=== PATIENT | female | born 1975 | race American Indian/Alaskan Native ===

== ENCOUNTER 2016-12-15 07:15 | Emergency (ER) | payer MEDICAID ==
[2016-12-15 07:29] VITALS: BP 118/78
[2016-12-15] MEDS ORDERED: ROCEPHIN IM ONE (08:45)
[2016-12-15] MEDS ORDERED: MOTRIN PO ONE (08:45)
[2016-12-15] MEDS ORDERED: XYLOCAINE 1% MPF 5 mL INFILTRATI ONE (08:45)
--- NOTE | 2016-12-15 08:57 | Emergency Department Report ---
ED ENT HPI - General Chief complaint: Earache Stated complaint: LFT EAR PAIN Time Seen by Provider: 12/15/16 08:45 Source: patient Mode of arrival: Ambulatory Limitations: No Limitations - History of Present Illness Initial comments: Patient is a 41-year-old female with a history of recurrent ear infection and ear disease who presents to the ED complaining of left ear pain 1 day. Patient states the pain started around 9 AM she started to experience some moderately, constant pain in her left ear. Patient states she recently got over cold past week. Patient states she has ENT doctor on [facility] ,she normally sees could not make it in today. Patient denies loss of the hearing. Patient denies fevers/chills/nausea/vomiting/abdominal pains chest pain/ shortness of breath or any other problems. - Related Data Previous Rx's Medication Instructions Recorded Last Taken Type ALBUTEROL Inhaler [ProAir HFA 1 puff IH Q4-6H #1 inha 08/19/13 Unknown Rx Inhaler] Ibuprofen [Motrin 600 MG tab] 600 mg PO Q8H PRN #21 tablet 09/30/16 Unknown Rx methylPREDNISolone [Medrol Dose 4 mg PO DAILY #1 pack 09/30/16 Unknown Rx Keyshawn] traMADol [Ultram 50 MG tab] 50 mg PO Q4HR PRN #10 tablet 09/30/16 Unknown Rx Amoxicillin/K Clav Tab [Augmentin 1 tab PO Q12HR #14 tab 12/15/16 Unknown Rx 875 mg] Ibuprofen [Motrin 800 MG tab] 800 mg PO Q8H #40 tablet 12/15/16 Unknown Rx Allergies Allergy/AdvReac Type Severity Reaction Status Date / Time No Known Allergies Allergy Verified 03/19/16 14:00 ED Dental HPI - General Chief complaint: Earache Stated complaint: LFT EAR PAIN Time Seen by Provider: 12/15/16 08:45 Source: patient Mode of arrival: Ambulatory Limitations: No Limitations - Related Data Previous Rx's Medication Instructions Recorded Last Taken Type ALBUTEROL Inhaler [ProAir HFA 1 puff IH Q4-6H #1 inha 08/19/13 Unknown Rx Inhaler] Ibuprofen [Motrin 600 MG tab] 600 mg PO Q8H PRN #21 tablet 09/30/16 Unknown Rx methylPREDNISolone [Medrol Dose 4 mg PO DAILY #1 pack 09/30/16 Unknown Rx Keyshawn] traMADol [Ultram 50 MG tab] 50 mg PO Q4HR PRN #10 tablet 09/30/16 Unknown Rx Amoxicillin/K Clav Tab [Augmentin 1 tab PO Q12HR #14 tab 12/15/16 Unknown Rx 875 mg] Ibuprofen [Motrin 800 MG tab] 800 mg PO Q8H #40 tablet 12/15/16 Unknown Rx Allergies Allergy/AdvReac Type Severity Reaction Status Date / Time No Known Allergies Allergy Verified 03/19/16 14:00 ED Review of Systems ROS: Stated complaint: LFT EAR PAIN Other details as noted in HPI Constitutional: denies: chills, fever Eyes: denies: eye pain, eye discharge, vision change ENT: ear pain. denies: throat pain, dental pain, hearing loss, congestion Respiratory: denies: cough, shortness of breath, SOB with exertion, SOB at rest , wheezing Cardiovascular: denies: chest pain, palpitations Endocrine: no symptoms reported Gastrointestinal: denies: abdominal pain, nausea, vomiting, diarrhea, constipation, hematemesis, hematochezia Genitourinary: denies: urgency, dysuria, frequency, hematuria, discharge Musculoskeletal: denies: back pain, joint swelling, arthralgia Skin: denies: rash, lesions, change in color, pruritus Neurological: denies: headache, weakness, numbness, paresthesias, confusion, abnormal gait Psychiatric: denies: anxiety, depression Hematological/Lymphatic: denies: easy bleeding, easy bruising ED Past Medical Hx - Past Medical History Previous Medical History?: Yes Hx Hypertension: Yes Hx Psychiatric Treatment: Yes (depression) Hx Asthma: Yes - Surgical History Additional Surgical History: C section x2 - Social History Smoking Status: Never Smoker Substance Use Type: None - Medications Home Medications: Home Medications Medication Instructions Recorded Confirmed Last Taken Type ALBUTEROL Inhaler [ProAir HFA 1 puff IH Q4-6H #1 inha 08/19/13 09/30/16 Unknown Rx Inhaler] Ibuprofen [Motrin 600 MG tab] 600 mg PO Q8H PRN #21 tablet 09/30/16 Unknown Rx methylPREDNISolone [Medrol Dose 4 mg PO DAILY #1 pack 09/30/16 Unknown Rx Keyshawn] traMADol [Ultram 50 MG tab] 50 mg PO Q4HR PRN #10 tablet 09/30/16 Unknown Rx Amoxicillin/K Clav Tab [Augmentin 1 tab PO Q12HR #14 tab 12/15/16 Unknown Rx 875 mg] Ibuprofen [Motrin 800 MG tab] 800 mg PO Q8H #40 tablet 12/15/16 Unknown Rx ED Physical Exam - General Limitations: No Limitations General appearance: alert, in no apparent distress - Head Head exam: Present: atraumatic, normocephalic - Eye Eye exam: Present: normal appearance, PERRL, EOMI. Absent: scleral icterus, conjunctival injection, periorbital swelling, periorbital tenderness Pupils: Present: normal accommodation - ENT ENT exam: Present: mucous membranes moist, normal external ear exam, other. Absent: TM's normal bilaterally - Expanded ENT Exam Expanded Ear exam: Present: other (no mastoid tenderness bilaterally, tragus tenderness of left ear) TM/Canal exam: Erythema: Left TM, Bulging: Left TM, Effusion: Right TM, Left TM Mouth exam: Present: normal external inspection. Absent: drooling, trismus, muffled voice, tongue normal, tongue elevation Teeth exam: Present: normal inspection. Absent: fractured tooth #, dental tenderness # Throat exam: Positive: normal inspection. Negative: tonsillar erythema, tonsillomegaly, tonsillar exudate, R peritonsillar mass, L peritonsillar mass - Neck Neck exam: Present: normal inspection, full ROM. Absent: tenderness, meningismus, lymphadenopathy, thyromegaly - Respiratory Respiratory exam: Present: normal lung sounds bilaterally. Absent: respiratory distress, wheezes, rales, rhonchi, accessory muscle use - Cardiovascular Cardiovascular Exam: Present: regular rate, normal rhythm. Absent: systolic murmur, diastolic murmur, rubs, gallop - GI/Abdominal GI/Abdominal exam: Present: soft, normal bowel sounds. Absent: distended, tenderness, guarding, rebound, organomegaly, mass, bruit - Extremities Exam Extremities exam: Present: normal inspection, full ROM, normal capillary refill. Absent: tenderness - Back Exam Back exam: Present: normal inspection, full ROM. Absent: CVA tenderness (R), CVA tenderness (L) - Neurological Exam Neurological exam: Present: alert, oriented X3, CN II-XII intact, normal gait - Psychiatric Psychiatric exam: Present: normal affect, normal mood - Skin Skin exam: Present: warm, dry, intact, normal color. Absent: rash ED Course Vital Signs 12/15/16 07:27 Temperature 97.8 F Pulse Rate 78 Respiratory 20 Rate Blood Pressure 118/78 O2 Sat by Pulse 100 Oximetry ED Medical Decision Making - Medical Decision Making 41-year-old female presents with left otitis media ED course: Patient received 250 mg of Rocephin IM, 800 mg Motrin. Discussed with patient to follow up with her ENT doctor. Discussed ENT referral was given as well. Discussed home medication with Augmentin twice a day for 7 days. Patient states she will make an appointment with her ENT Dr. Vital signs stable. Patient is in no acute or respiratory distress. Critical care attestation.: If time is entered above; I have spent that time in minutes in the direct care of this critically ill patient, excluding procedure time. ED Disposition Clinical Impression: Left otitis media Qualifiers: Otitis media type: suppurative Chronicity: acute Recurrence: recurrent Spontaneous tympanic membrane rupture: without spontaneous rupture Qualified Code(s): H66.005 - Acute suppurative otitis media without spontaneous rupture of ear drum, recurrent, left ear Disposition: DISCHARGED TO HOME OR SELFCARE Is pt being admited?: No Does the pt Need Aspirin: No Condition: Stable Instructions: Otitis Media (ED) Prescriptions: Amoxicillin/K Clav Tab [Augmentin 875 mg] 1 tab PO Q12HR #14 tab Ibuprofen [Motrin 800 MG tab] 800 mg PO Q8H #40 tablet Referrals: PRIMARY MD YUSUF [Primary Care Provider] - 3-5 Days LINDSAY MILLER MD [Staff Physician] - 3-5 Days RADHA KRISHNAN MD [Staff Physician] - 3-5 Days JOHN COOK MD [Staff Physician] - 3-5 Days VAHE CANTOR MD [Staff Physician] - 3-5 Days TOBIN FERNÁNDEZ MD [Staff Physician] - 3-5 Days Forms: Work/School Release Form(ED) Time of Disposition: 09:40
== END 2016-12-15 09:53 | disposition home or self-care (01) ==
LOC: ED 07:15
DX: H66.005 Acute suppurative otitis media without spontaneous rupture of ear drum, recurrent, left ear (principal); I10 Essential (primary) hypertension; J45.909 Unspecified asthma, uncomplicated; F32.9 Major depressive disorder, single episode, unspecified
CPT/HCPCS: 96372; 99282; J0696

== ENCOUNTER 2016-12-17 13:43 | Emergency (ER) | payer MEDICAID ==
--- NOTE | 2016-12-17 18:03 | Emergency Department Report ---
ED ENT HPI - General Chief complaint: Earache Stated complaint: BLOOD DRAINAGE FROM EAR Time Seen by Provider: 12/17/16 17:57 Source: patient Mode of arrival: Ambulatory Limitations: No Limitations - History of Present Illness Initial comments: Patient presents with left ear pain 4 days now. She was here 2 days ago and was given antibiotic Augmentin. She states that she has only taken 3 doses and she forgot her dose this morning. She admits that the ibuprofen 800 mg is helping with the pain. The reason for her coming back is she noted blood on her pillow when she got home and lay down. Denies change in any other symptoms. She denies nausea, vomiting, chills, fever, abdominal pain, headache , dizziness, blurred vision. Does admit to having a history of left ear infections since she was a child. She admits to having a appointment with ENT on 12/22/16 complaint: ear pain -: days(s) (4) Location: L ear Severity: severe Severity scale (0 -10): 8 Quality: aching, dull Consistency: constant Improves with: NSAID Worsens with: none - Related Data Previous Rx's Medication Instructions Recorded Last Taken Type ALBUTEROL Inhaler [ProAir HFA 1 puff IH Q4-6H #1 inha 08/19/13 Unknown Rx Inhaler] Ibuprofen [Motrin 600 MG tab] 600 mg PO Q8H PRN #21 tablet 09/30/16 Unknown Rx methylPREDNISolone [Medrol Dose 4 mg PO DAILY #1 pack 09/30/16 Unknown Rx Keyshawn] traMADol [Ultram 50 MG tab] 50 mg PO Q4HR PRN #10 tablet 09/30/16 Unknown Rx Amoxicillin/K Clav Tab [Augmentin 1 tab PO Q12HR #14 tab 12/15/16 Unknown Rx 875 mg] Ibuprofen [Motrin 800 MG tab] 800 mg PO Q8H #40 tablet 12/15/16 Unknown Rx Allergies Allergy/AdvReac Type Severity Reaction Status Date / Time Penicillins Allergy Hives Verified 12/17/16 14:30 ED Dental HPI - General Chief complaint: Earache Stated complaint: BLOOD DRAINAGE FROM EAR Time Seen by Provider: 12/17/16 17:57 Source: patient Mode of arrival: Ambulatory Limitations: No Limitations - Related Data Previous Rx's Medication Instructions Recorded Last Taken Type ALBUTEROL Inhaler [ProAir HFA 1 puff IH Q4-6H #1 inha 08/19/13 Unknown Rx Inhaler] Ibuprofen [Motrin 600 MG tab] 600 mg PO Q8H PRN #21 tablet 09/30/16 Unknown Rx methylPREDNISolone [Medrol Dose 4 mg PO DAILY #1 pack 09/30/16 Unknown Rx Keyshawn] traMADol [Ultram 50 MG tab] 50 mg PO Q4HR PRN #10 tablet 09/30/16 Unknown Rx Amoxicillin/K Clav Tab [Augmentin 1 tab PO Q12HR #14 tab 12/15/16 Unknown Rx 875 mg] Ibuprofen [Motrin 800 MG tab] 800 mg PO Q8H #40 tablet 12/15/16 Unknown Rx Allergies Allergy/AdvReac Type Severity Reaction Status Date / Time Penicillins Allergy Hives Verified 12/17/16 14:30 ED Review of Systems ROS: Stated complaint: BLOOD DRAINAGE FROM EAR Other details as noted in HPI Constitutional: denies: chills, fever Eyes: denies: eye pain, eye discharge, vision change ENT: as per HPI, ear pain (left), hearing loss (that is chronic) Respiratory: denies: cough, shortness of breath, wheezing Cardiovascular: denies: chest pain, palpitations Gastrointestinal: denies: abdominal pain, nausea, diarrhea Genitourinary: denies: urgency, dysuria, discharge Musculoskeletal: denies: back pain, joint swelling, arthralgia Skin: denies: rash, lesions Neurological: denies: headache, weakness, paresthesias ED Past Medical Hx - Past Medical History Previous Medical History?: Yes Hx Hypertension: Yes Hx Psychiatric Treatment: Yes (depression) Hx Asthma: Yes Additional medical history: Earache - Surgical History Past Surgical History?: Yes Additional Surgical History: C section x2 - Social History Smoking Status: Smoker, Current Status Unknown Substance Use Type: Prescribed - Medications Home Medications: Home Medications Medication Instructions Recorded Confirmed Last Taken Type ALBUTEROL Inhaler [ProAir HFA 1 puff IH Q4-6H #1 inha 08/19/13 09/30/16 Unknown Rx Inhaler] Ibuprofen [Motrin 600 MG tab] 600 mg PO Q8H PRN #21 tablet 09/30/16 Unknown Rx methylPREDNISolone [Medrol Dose 4 mg PO DAILY #1 pack 09/30/16 Unknown Rx Keyshawn] traMADol [Ultram 50 MG tab] 50 mg PO Q4HR PRN #10 tablet 09/30/16 Unknown Rx Amoxicillin/K Clav Tab [Augmentin 1 tab PO Q12HR #14 tab 12/15/16 Unknown Rx 875 mg] Ibuprofen [Motrin 800 MG tab] 800 mg PO Q8H #40 tablet 12/15/16 Unknown Rx ED Physical Exam - General Limitations: No Limitations General appearance: alert, in no apparent distress - Head Head exam: Present: atraumatic, normocephalic - Eye Eye exam: Present: normal appearance - ENT ENT exam: Present: mucous membranes moist - Expanded ENT Exam Expanded TM/Canal exam: Erythema: Left TM, Effusion: Left TM, Perforation: Left TM, Loss of Landmarks: Left TM (scarring) Mouth exam: Present: normal external inspection Teeth exam: Present: normal inspection Throat exam: Positive: normal inspection - Neck Neck exam: Present: normal inspection, full ROM. Absent: lymphadenopathy - Respiratory Respiratory exam: Present: normal lung sounds bilaterally. Absent: respiratory distress - Cardiovascular Cardiovascular Exam: Present: regular rate, normal rhythm. Absent: systolic murmur, diastolic murmur, rubs, gallop - GI/Abdominal GI/Abdominal exam: Present: soft, normal bowel sounds. Absent: tenderness - Neurological Exam Neurological exam: Present: alert, oriented X3 - Psychiatric Psychiatric exam: Present: normal affect, normal mood - Skin Skin exam: Present: warm, dry, intact, normal color. Absent: rash ED Course Vital Signs 12/17/16 14:26 Temperature 98.3 F Pulse Rate 52 L Respiratory 16 Rate Blood Pressure 123/64 O2 Sat by Pulse 100 Oximetry ED Medical Decision Making - Medical Decision Making Patient presents with ear perforation and otitis media. She is already on Augmentin and ibuprofen from 2 days ago. I will not change her medications. She has an appointment on 12/22/69 with a ENT doctor. I will reassure her that her symptoms are not emergent and advised her to keep her appointment with the ENT doctor. I'll also advise her not to miss any of her medication. - Differential Diagnosis otitis media, ear perforation, otitis externa Critical Care Time: No Critical care attestation.: If time is entered above; I have spent that time in minutes in the direct care of this critically ill patient, excluding procedure time. ED Disposition Clinical Impression: Left otitis media, Perforation of left tympanic membrane Disposition: DISCHARGED TO HOME OR SELFCARE Is pt being admited?: No Does the pt Need Aspirin: No Condition: Stable Instructions: Otitis Media (ED), Ruptured Eardrum (ED) Additional Instructions: Please do not miss your appointment with the ENT doctor. Please take your medication as prescribed. Your antibiotic should be taken twice a day, 12 hours apart every day. Referrals: PRIMARY CARE, [Primary Care Provider] - 3-5 Days Forms: Work/School Release Form(ED) Time of Disposition: 18:07
[2016-12-17 18:16] VITALS: BP 126/60
== END 2016-12-17 18:14 | disposition home or self-care (01) ==
LOC: ED 13:43
DX: H66.92 Otitis media, unspecified, left ear (principal); H72.92 Unspecified perforation of tympanic membrane, left ear; I10 Essential (primary) hypertension; J45.909 Unspecified asthma, uncomplicated; F17.200 Nicotine dependence, unspecified, uncomplicated; Z88.0 Allergy status to penicillin
CPT/HCPCS: 99282

== ENCOUNTER 2017-02-07 13:51 | Emergency (ER) | payer MEDICAID ==
[2017-02-07] MEDS ORDERED: MOTRIN PO ONE (16:28)
--- NOTE | 2017-02-07 16:28 | Emergency Department Report ---
HPI - General Chief Complaint: Dental/Oral Time Seen by Provider: 02/07/17 16:27 - HPI HPI: Patient here complaining of tooth ache to left lower back tooth that is radiating up into her left ear for about a month. She says she called dentist but cannot get in with dentist right away. She reports pain is 10 out of 10. Denies any fever or chills. Denies any sore throat. Denies any nausea or vomiting. Denies any facial swelling. ED Past Medical Hx - Past Medical History Previous Medical History?: Yes Hx Hypertension: Yes Hx Psychiatric Treatment: Yes (depression) Hx Asthma: Yes Additional medical history: Earache - Surgical History Past Surgical History?: Yes Additional Surgical History: C section x2 - Family History Family history: no significant - Social History Smoking Status: Never Smoker Substance Use Type: Non Opiate Pain, Prescribed - Medications Home Medications: Home Medications Medication Instructions Recorded Confirmed Last Taken Type ALBUTEROL Inhaler [ProAir HFA 1 puff IH Q4-6H #1 inha 08/19/13 09/30/16 Unknown Rx Inhaler] methylPREDNISolone [Medrol Dose 4 mg PO DAILY #1 pack 09/30/16 Unknown Rx Keyshawn] traMADol [Ultram 50 MG tab] 50 mg PO Q4HR PRN #10 tablet 09/30/16 Unknown Rx Amoxicillin/K Clav Tab [Augmentin 1 tab PO Q12HR #14 tab 12/15/16 Unknown Rx 875 mg] Ibuprofen [Motrin 800 MG tab] 800 mg PO Q8H #40 tablet 12/15/16 Unknown Rx Acetaminophen/Codeine [Tylenol 1 tab PO Q6H PRN #20 tab 02/07/17 Unknown Rx /Codeine # 3 tab] Clindamycin [Clindamycin CAP] 300 mg PO Q8H #30 cap 02/07/17 Unknown Rx Ibuprofen [Motrin 600 MG tab] 600 mg PO Q8H PRN #21 tablet 02/07/17 Unknown Rx ED Review of Systems ROS: Stated complaint: TOOTHACHE/PAIN LEFT EAR/FACE Other details as noted in HPI Comment: All other systems reviewed and negative Constitutional: denies: chills, fever ENT: ear pain, dental pain. denies: throat pain, congestion Respiratory: no symptoms reported Cardiovascular: denies: chest pain, palpitations, edema, syncope Gastrointestinal: denies: nausea, vomiting Skin: denies: rash Neurological: denies: headache Physical Exam - Physical Exam Vital Signs: Vital Signs 02/07/17 13:57 Temperature 98.5 F Pulse Rate 62 Respiratory 18 Rate Blood Pressure 135/72 O2 Sat by Pulse 100 Oximetry General: This is a 41-year-old female well-nourished well-developed in no acute distress. Physical Exam: Head: Normocephalic atraumatic Mouth: Moist, no pharyngeal exudate or erythema. Uvula is midline and oral airway is patent. No gingival enlargement or dental tenderness. No facial swelling. No peritonsillar abscesses. Patient with multiple areas of dental caries. Tender to palpate around #18. No cellulitis noted. #18 with partial fracture without any palpable exposure. Neck: Supple, no C-spine tenderness, no tracheal deviation. Nontender to palpate. no adenopathy Ears: Pearly-penaloza to both TM..bilateral EAC without any redness swelling or drainage Eyes: Bilateral pupils equal and reactive to light, bilateral EOM intact. Bilateral sclera and conjunctiva without injection. Normal accommodation Nose: Mucosa moist, normal mucosa. maxillary and frontal sinus non-tender to palpate. Lungs: Clear to auscultate bilaterally no rhonchi wheezes or rales. Normal work of breathing extremity; No CCE. +2 pulses. No neurovascular compromise Cardiovascular: S1-S2, regular rate rhythm. No murmurs. Skin: clean Dry and intact no rash no lesions Psych: Normal mood and behavior ED Course Vital Signs 02/07/17 13:57 Temperature 98.5 F Pulse Rate 62 Respiratory 18 Rate Blood Pressure 135/72 O2 Sat by Pulse 100 Oximetry - Reevaluation(s) Reevaluation #1: 02/07/17 18:27 Patient given Motrin 800 mg in emergency room for toothache. ED Medical Decision Making - Medical Decision Making ED Course: Patient with toothache, dental caries and dental fracture. I discussed the patient that she will need to follow-up with a dentist and she says she already has an appointment but it's Weak and she can't wait. She was given Motrin 800 mg in emergency room to manage pain which decreased her pain. Patient discharged home with prescription for Motrin, Tylenol No. 3 and clindamycin. Critical care attestation.: If time is entered above; I have spent that time in minutes in the direct care of this critically ill patient, excluding procedure time. ED Disposition Clinical Impression: Toothache, Dental caries Fracture, tooth Qualifiers: Encounter type: initial encounter Fracture type: closed Qualified Code(s): S02.5XXA - Fracture of tooth (traumatic), initial encounter for closed fracture Disposition: DISCHARGED TO HOME OR SELFCARE Is pt being admited?: No Does the pt Need Aspirin: No Condition: Stable Instructions: Dental Caries (ED), Toothache (ED) Additional Instructions: Follow-up will [facility] dental clinic call and Thursday to schedule an appointment. Please do not take Tylenol [address] as this will cause drowsiness. Take oral antibiotic as prescribed Prescriptions: Acetaminophen/Codeine [Tylenol /Codeine # 3 tab] 1 tab PO Q6H PRN #20 tab PRN Reason: Toothache Clindamycin [Clindamycin CAP] 300 mg PO Q8H #30 cap Ibuprofen [Motrin 600 MG tab] 600 mg PO Q8H PRN #21 tablet PRN Reason: Pain Referrals: [facility] [Outside] - 2-3 Days Forms: Accompanied Note, Work/School Release Form(ED)
[2017-02-07 18:43] VITALS: BP 141/82
== END 2017-02-07 18:43 | disposition home or self-care (01) ==
LOC: ED 13:51
DX: S02.5XXA Fracture of tooth (traumatic), initial encounter for closed fracture (principal); K02.9 Dental caries, unspecified; F32.9 Major depressive disorder, single episode, unspecified; J45.909 Unspecified asthma, uncomplicated; I10 Essential (primary) hypertension; Z88.0 Allergy status to penicillin; X58.XXXA Exposure to other specified factors, initial encounter; Y93.89 Activity, other specified; Y92.89 Other specified places as the place of occurrence of the external cause; Y99.8 Other external cause status
CPT/HCPCS: 99282

== ENCOUNTER 2017-05-31 15:35 | Emergency (ER) | payer MEDICAID ==
[2017-05-31 16:14] VITALS: BP 131/79
[2017-05-31] MEDS ORDERED: MOTRIN PO ONE (16:58)
--- NOTE | 2017-05-31 16:59 | Emergency Department Report ---
ED Lower Extremity HPI - General Chief Complaint: Extremity Injury, Lower Stated Complaint: RT ANKLE INJURY Time Seen by Provider: 05/31/17 16:57 Source: patient Mode of arrival: Ambulatory Limitations: No Limitations - History of Present Illness Initial Comments: Patient reports she slipped and fell over a rug and injured her right ankle while at work two days ago Complaint: ankle injury (right), foot injury (right) Onset/Timin -: days(s) Injury: Ankle: Right, Foot: Right Type of Injury: unknown Place: work Severity: severe Severity scale (0 -10): 9 Improves With: immobilization Worsens With: weight bearing Context: fall Other Symptoms: other (none) Associated Symptoms: swelling, able to partially bear weight. denies: snap/pop sensation, numbness, tingling, unable to bear weight, ambulatory Treatments Prior to Arrival: cold therapy - Related Data Previous Rx's Medication Instructions Recorded Last Taken Type ALBUTEROL Inhaler [ProAir HFA 1 puff IH Q4-6H #1 inha 08/19/13 Unknown Rx Inhaler] methylPREDNISolone [Medrol Dose 4 mg PO DAILY #1 pack 09/30/16 Unknown Rx Keyshawn] traMADol [Ultram 50 MG tab] 50 mg PO Q4HR PRN #10 tablet 09/30/16 Unknown Rx Amoxicillin/K Clav Tab [Augmentin 1 tab PO Q12HR #14 tab 12/15/16 Unknown Rx 875 mg] Ibuprofen [Motrin 800 MG tab] 800 mg PO Q8H #40 tablet 12/15/16 Unknown Rx Acetaminophen/Codeine [Tylenol 1 tab PO Q6H PRN #20 tab 02/07/17 Unknown Rx /Codeine # 3 tab] Clindamycin [Clindamycin CAP] 300 mg PO Q8H #30 cap 02/07/17 Unknown Rx Ibuprofen [Motrin 600 MG tab] 600 mg PO Q8H PRN #21 tablet 02/07/17 Unknown Rx Ibuprofen [Motrin 800 MG tab] 800 mg PO Q8HR PRN #30 tablet 05/31/17 Unknown Rx Allergies Allergy/AdvReac Type Severity Reaction Status Date / Time Penicillins Allergy Hives Verified 12/17/16 14:30 ED Review of Systems ROS: Stated complaint: RT ANKLE INJURY Other details as noted in HPI Constitutional: denies: chills, diaphoresis, fever, malaise Eyes: denies: eye pain ENT: denies: ear pain, throat pain Respiratory: denies: cough, orthopnea, shortness of breath, SOB with exertion, SOB at rest Cardiovascular: denies: chest pain, palpitations, dyspnea on exertion, orthopnea Gastrointestinal: denies: abdominal pain, nausea, vomiting, diarrhea, constipation Musculoskeletal: arthralgia (right ankle and foot). denies: back pain, joint swelling, myalgia Skin: denies: rash, lesions Neurological: denies: headache, weakness, numbness, paresthesias, confusion Psychiatric: denies: anxiety, depression Hematological/Lymphatic: denies: easy bleeding, easy bruising, swollen glands ED Past Medical Hx - Past Medical History Hx Hypertension: Yes Hx Psychiatric Treatment: Yes (depression) Hx Asthma: Yes Additional medical history: Earache - Surgical History Additional Surgical History: C section x2 - Social History Smoking Status: Never Smoker Substance Use Type: None - Medications Home Medications: Home Medications Medication Instructions Recorded Confirmed Last Taken Type ALBUTEROL Inhaler [ProAir HFA 1 puff IH Q4-6H #1 inha 08/19/13 09/30/16 Unknown Rx Inhaler] methylPREDNISolone [Medrol Dose 4 mg PO DAILY #1 pack 09/30/16 Unknown Rx Keyshawn] traMADol [Ultram 50 MG tab] 50 mg PO Q4HR PRN #10 tablet 09/30/16 Unknown Rx Amoxicillin/K Clav Tab [Augmentin 1 tab PO Q12HR #14 tab 12/15/16 Unknown Rx 875 mg] Ibuprofen [Motrin 800 MG tab] 800 mg PO Q8H #40 tablet 12/15/16 Unknown Rx Acetaminophen/Codeine [Tylenol 1 tab PO Q6H PRN #20 tab 02/07/17 Unknown Rx /Codeine # 3 tab] Clindamycin [Clindamycin CAP] 300 mg PO Q8H #30 cap 02/07/17 Unknown Rx Ibuprofen [Motrin 600 MG tab] 600 mg PO Q8H PRN #21 tablet 02/07/17 Unknown Rx Ibuprofen [Motrin 800 MG tab] 800 mg PO Q8HR PRN #30 tablet 05/31/17 Unknown Rx ED Physical Exam - General Limitations: No Limitations General appearance: alert, in no apparent distress - Head Head exam: Present: atraumatic, normocephalic, normal inspection - Eye Eye exam: Present: normal appearance, PERRL, EOMI Pupils: Present: normal accommodation - ENT ENT exam: Present: normal exam, normal orophraynx, mucous membranes moist. Absent: mucous membranes dry - Neck Neck exam: Present: normal inspection, full ROM. Absent: tenderness, meningismus, lymphadenopathy, thyromegaly - Respiratory Respiratory exam: Present: normal lung sounds bilaterally. Absent: respiratory distress, wheezes, rales, rhonchi, stridor - Cardiovascular Cardiovascular Exam: Present: regular rate, normal rhythm, normal heart sounds. Absent: bradycardia, tachycardia, irregular rhythm, systolic murmur, diastolic murmur, rubs, gallop - Extremities Exam Extremities exam: Present: normal inspection, full ROM, normal capillary refill. Absent: tenderness, pedal edema, joint swelling, calf tenderness - Expanded Lower Extremity Exam Right Hip exam: Present: pelvic stability Upper Leg exam: Present: normal inspection, full ROM Knee exam: Present: normal inspection, full ROM Lower Leg exam: Present: normal inspection, full ROM. Absent: Daisy's sign Ankle exam: Present: tenderness (medial and lateral), swelling. Absent: abrasion, laceration, ecchymosis, deformity, crepidus, dislocation, erythema, anterior draw sign Foot/Toe exam: Present: normal inspection, full ROM, tenderness (dorsum), swelling. Absent: abrasion, laceration, ecchymosis, deformity, crepidus, dislocation, erythema, amputation, puncture wound, foreign body, calcaneal tenderness, tenderness at base of 5th metatarsal, nail avulsion, subungual hematoma Neuro vascular tendon exam: Present: no vascular compromise. Absent: pulse deficit, abnormal cap refill, motor deficit, sensory deficit, tendon deficit, extremity cold to touch, pallor, abnormal 2-point discrimination, decreased fine /light touch, foot drop, peroneal nerve deficit, significant pain with passive ROM of distal joint Gait: Positive: observed and limited by pain - Back Exam Back exam: Present: normal inspection, full ROM. Absent: CVA tenderness (R), CVA tenderness (L) - Neurological Exam Neurological exam: Present: alert, oriented X3, CN II-XII intact, normal gait, reflexes normal. Absent: motor sensory deficit - Psychiatric Psychiatric exam: Present: normal affect, normal mood. Absent: depressed, agitated - Skin Skin exam: Present: warm, dry, intact, normal color. Absent: rash ED Course Vital Signs 05/31/17 16:11 Temperature 99.1 F Pulse Rate 73 Respiratory 18 Rate Blood Pressure 131/79 O2 Sat by Pulse 100 Oximetry - Reevaluation(s) Reevaluation #1: 05/31/17 17:35 NSAID, laboratory and radiology studies ordered ED Lower Extremity MDM - Lab Data Vital Signs 05/31/17 16:11 Temperature 99.1 F Pulse Rate 73 Respiratory 18 Rate Blood Pressure 131/79 O2 Sat by Pulse 100 Oximetry - Medical Decision Making During the course of ED, NSAID and radiology study were ordered. The imaging study revealed no fractures or abnormality. Patient was sent home with a velcro ankle splint, a prescription for Ibuprofen and instructed to follow up with the selective referral given at discharge - Differential Diagnosis Right Ankle Sprain, Right Ankle Fracture Critical care attestation.: If time is entered above; I have spent that time in minutes in the direct care of this critically ill patient, excluding procedure time. ED Disposition Clinical Impression: Ankle pain, right Qualifiers: Chronicity: acute Qualified Code(s): M25.571 - Pain in right ankle and joints of right foot Disposition: DC-01 TO HOME OR SELFCARE Is pt being admited?: No Does the pt Need Aspirin: No Condition: Stable Instructions: Ankle Sprain (ED) Additional Instructions: Take medication as directed. Follow up with the selective referral given at discharge Prescriptions: Ibuprofen [Motrin 800 MG tab] 800 mg PO Q8HR PRN #30 tablet PRN Reason: Pain Referrals: ANGY ANDUJAR MD [Staff Physician] - 3-5 Days Time of Disposition: 18:55
--- NOTE | 2017-05-31 19:18 | XRay Report ---
FINAL REPORT PROCEDURE: XR FOOT 3+V RT TECHNIQUE: RIGHT foot radiographs, AP, lateral, and oblique views. CPT 77596 HISTORY: fall/ right foot pain COMPARISON: No prior studies are available for comparison. 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 No fracture or dislocation is identified. Bone density appears normal. No radiopaque foreign bodies are identified. There appears to be soft tissue swelling laterally in the foot. No calcaneal spurs are seen. IMPRESSION: No evidence of fracture or dislocation. Soft tissue swelling as described. 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 No other abnormalities are seen..
--- NOTE | 2017-05-31 19:24 | XRay Report ---
FINAL REPORT PROCEDURE: Right ankle series TECHNIQUE: Right ankle radiographs, AP, lateral, and oblique views. CPT 19741 HISTORY: fall/ right ankle pain and swelling COMPARISON: No prior studies are available for comparison. FINDINGS: Fracture (s) and/or Dislocation(s): None . Alignment: Normal . Joint space(s): Normal . Soft tissues: There appears to be mild soft tissue swelling medially. No joint effusion is seen.. Bone mineralization: Normal . Foreign bodies: None . Calcaneal spurring: None . IMPRESSION: Mild soft tissue swelling otherwise negative exam. No evidence of fracture or dislocation..
== END 2017-05-31 19:10 | disposition home or self-care (01) ==
LOC: ED 15:35
DX: M25.571 Pain in right ankle and joints of right foot (principal); I10 Essential (primary) hypertension; J45.909 Unspecified asthma, uncomplicated; Z88.0 Allergy status to penicillin
CPT/HCPCS: 99283

== ENCOUNTER 2017-08-23 09:57 | Emergency (ER) | payer MEDICAID ==
[2017-08-23 10:33] VITALS: BP 130/73
--- NOTE | 2017-08-23 12:42 | Emergency Department Report ---
ED Extremity Problem HPI - General Chief complaint: Extremity Injury, Lower Stated complaint: RIGHT ANKLE INJURY Time Seen by Provider: 08/23/17 12:40 Source: patient Mode of arrival: Ambulatory Limitations: No Limitations - History of Present Illness Initial comments: 41-year-old female presents with complaint of acute on chronic bilateral sole pain. Patient states that she stands for 12-14 hours at work on a daily basis and has heel pain that radiates up her feet. Patient states that yesterday while at work she stumbled and twisted her right ankle. States she took Tylenol at home with minimal relief of her pain. Denies any other injuries. Patient is ambulatory without assistance. MD Complaint: extremity pain, extremity swelling Onset/Timin -: days(s) Location: right History of Same: No Severity scale (0 -10): 5 Quality: aching Consistency: intermittent Improves with: cold therapy, immobilization Worsens with: walking Associated Symptoms: denies other symptoms - Related Data Previous Rx's Medication Instructions Recorded Last Taken Type ALBUTEROL Inhaler [ProAir HFA 1 puff IH Q4-6H #1 inha 08/19/13 Unknown Rx Inhaler] methylPREDNISolone [Medrol Dose 4 mg PO DAILY #1 pack 09/30/16 Unknown Rx Keyshawn] traMADol [Ultram 50 MG tab] 50 mg PO Q4HR PRN #10 tablet 09/30/16 Unknown Rx Amoxicillin/K Clav Tab [Augmentin 1 tab PO Q12HR #14 tab 12/15/16 Unknown Rx 875 mg] Ibuprofen [Motrin 800 MG tab] 800 mg PO Q8H #40 tablet 12/15/16 Unknown Rx Acetaminophen/Codeine [Tylenol 1 tab PO Q6H PRN #20 tab 02/07/17 Unknown Rx /Codeine # 3 tab] Clindamycin [Clindamycin CAP] 300 mg PO Q8H #30 cap 02/07/17 Unknown Rx Ibuprofen [Motrin 600 MG tab] 600 mg PO Q8H PRN #21 tablet 02/07/17 Unknown Rx Ibuprofen [Motrin 800 MG tab] 800 mg PO Q8HR PRN #30 tablet 05/31/17 Unknown Rx Naproxen 500 mg PO BID PRN #30 tablet 08/23/17 Unknown Rx Allergies Allergy/AdvReac Type Severity Reaction Status Date / Time Penicillins Allergy Hives Verified 03/15/17 14:30 ED Review of Systems ROS: Stated complaint: RIGHT ANKLE INJURY Other details as noted in HPI Constitutional: denies: chills, fever Eyes: denies: eye pain, eye discharge, vision change ENT: denies: ear pain, throat pain Respiratory: denies: cough, shortness of breath, wheezing Cardiovascular: denies: chest pain, palpitations Endocrine: no symptoms reported Gastrointestinal: denies: abdominal pain, nausea, diarrhea Genitourinary: denies: urgency, dysuria, discharge Musculoskeletal: as per HPI (chronic bilateral foot pain). denies: back pain, joint swelling, arthralgia Skin: denies: rash, lesions Neurological: denies: headache, weakness, paresthesias Psychiatric: denies: anxiety, depression Hematological/Lymphatic: denies: easy bleeding, easy bruising ED Past Medical Hx - Past Medical History Previous Medical History?: Yes Hx Hypertension: Yes Hx Psychiatric Treatment: Yes (depression) Hx Asthma: Yes Additional medical history: Earache - Surgical History Past Surgical History?: Yes Additional Surgical History: C section x2 - Social History Smoking Status: Current Every Day Smoker Substance Use Type: Alcohol - Medications Home Medications: Home Medications Medication Instructions Recorded Confirmed Last Taken Type ALBUTEROL Inhaler [ProAir HFA 1 puff IH Q4-6H #1 inha 08/19/13 09/30/16 Unknown Rx Inhaler] methylPREDNISolone [Medrol Dose 4 mg PO DAILY #1 pack 09/30/16 Unknown Rx Keyshawn] traMADol [Ultram 50 MG tab] 50 mg PO Q4HR PRN #10 tablet 09/30/16 Unknown Rx Amoxicillin/K Clav Tab [Augmentin 1 tab PO Q12HR #14 tab 12/15/16 Unknown Rx 875 mg] Ibuprofen [Motrin 800 MG tab] 800 mg PO Q8H #40 tablet 12/15/16 Unknown Rx Acetaminophen/Codeine [Tylenol 1 tab PO Q6H PRN #20 tab 02/07/17 Unknown Rx /Codeine # 3 tab] Clindamycin [Clindamycin CAP] 300 mg PO Q8H #30 cap 02/07/17 Unknown Rx Ibuprofen [Motrin 600 MG tab] 600 mg PO Q8H PRN #21 tablet 02/07/17 Unknown Rx Ibuprofen [Motrin 800 MG tab] 800 mg PO Q8HR PRN #30 tablet 05/31/17 Unknown Rx Naproxen 500 mg PO BID PRN #30 tablet 08/23/17 Unknown Rx ED Physical Exam - General Limitations: No Limitations General appearance: alert, in no apparent distress - Head Head exam: Present: atraumatic, normocephalic - Eye Eye exam: Present: normal appearance, PERRL, EOMI - ENT ENT exam: Present: mucous membranes moist - Neck Neck exam: Present: normal inspection - Respiratory Respiratory exam: Present: normal lung sounds bilaterally. Absent: respiratory distress - Cardiovascular Cardiovascular Exam: Present: regular rate, normal rhythm. Absent: systolic murmur, diastolic murmur, rubs, gallop - GI/Abdominal GI/Abdominal exam: Present: soft, normal bowel sounds - Extremities Exam Extremities exam: Present: normal inspection - Expanded Lower Extremity Exam Right Lower Leg exam: Present: normal inspection, full ROM Ankle exam: Present: normal inspection, full ROM (dorsiflexion and plantar flexion are intact) Foot/Toe exam: Present: normal inspection, full ROM Neuro vascular tendon exam: Present: no vascular compromise (dorsalis pedis and posterior tibial pulses are intact) - Back Exam Back exam: Present: normal inspection - Neurological Exam Neurological exam: Present: alert, oriented X3 - Psychiatric Psychiatric exam: Present: normal affect, normal mood - Skin Skin exam: Present: warm, dry, intact, normal color. Absent: rash ED Course Vital Signs 08/23/17 10:31 Temperature 98.3 F Pulse Rate 59 L Respiratory 16 Rate Blood Pressure 130/73 O2 Sat by Pulse 100 Oximetry ED Medical Decision Making - Medical Decision Making A/P: Plantar fasciitis, right ankle sprain 1-naproxen when necessary 2-follow up with podiatry and orthopedics 3-RICE therapy, Duy wrap, ankle stirrup splint. Patient has crutches at home 4-ankle x-ray unremarkable Critical care attestation.: If time is entered above; I have spent that time in minutes in the direct care of this critically ill patient, excluding procedure time. ED Disposition Clinical Impression: Plantar fasciitis of right foot Ankle pain, right Qualifiers: Chronicity: acute Qualified Code(s): M25.571 - Pain in right ankle and joints of right foot Disposition: - TO HOME OR SELFCARE Is pt being admited?: No Does the pt Need Aspirin: No Condition: Stable Instructions: Ankle Sprain (ED), Plantar Fasciitis (ED), Ankle Stirrup Splint ( ED), RICE Therapy (ED) Prescriptions: Naproxen 500 mg PO BID PRN #30 tablet PRN Reason: Pain Referrals: PRIMARY CARE, [Primary Care Provider] - 3-5 Days [facility] [Provider Group] - 3-5 Days ISRA CHRISTIE DPM [Staff Physician] - 3-5 Days Forms: Work/School Release Form(ED) Time of Disposition: 13:10
[2017-08-23] MEDS ORDERED: TYLENOL PO ONE (12:50)
--- NOTE | 2017-08-23 13:12 | XRay Report ---
RIGHT ANKLE, 3 views: History: right ankle pain. Findings: Mild soft tissue swelling is identified. No acute osseous abnormality or joint pathology is identified. The fifth metatarsal base is intact. Impression: Soft tissue swelling. No acute osseous injury.
== END 2017-08-23 13:39 | disposition home or self-care (01) ==
LOC: ED 09:57
DX: M72.2 Plantar fascial fibromatosis (principal); M25.571 Pain in right ankle and joints of right foot; I10 Essential (primary) hypertension; F32.9 Major depressive disorder, single episode, unspecified; J45.909 Unspecified asthma, uncomplicated; F17.200 Nicotine dependence, unspecified, uncomplicated; Z88.0 Allergy status to penicillin; X50.1XXA Overexertion from prolonged static or awkward postures, initial encounter; Y93.89 Activity, other specified; Y92.89 Other specified places as the place of occurrence of the external cause; Y99.8 Other external cause status

== ENCOUNTER 2017-12-11 19:02 | Emergency (ER) | payer SELFPAY ==
[2017-12-11] MEDS ORDERED: NORCO 5/325 PO ONE (22:43)
[2017-12-11] MEDS ORDERED: LIDOCAINE VISCOUS 2% PO ONE (22:43)
[2017-12-11] MEDS ORDERED: ZOFRAN ODT PO ONE (22:44)
--- NOTE | 2017-12-11 23:35 | Emergency Department Report ---
- General Chief Complaint: Upper Respiratory Infection Stated Complaint: HEADACHE CP Time Seen by Provider: 12/11/17 22:43 Source: patient Mode of arrival: Ambulatory Limitations: No Limitations - History of Present Illness Initial Comments: 42-year-old -[place] female comes in complaint of headache bodyaches sore throat and cough. She admits to chills no fever. She complains of a headache she reports that she has vomited 10 times. Today. She reports that she has left ear pain. She has taken ibuprofen. MD Complaint: fever, cough, sore throat, nasal congestion -: days(s) (1) Severity: moderate Quality: burning, sharp Consistency: constant Improves With: nothing Associated Symptoms: chills, myalgias, headache, nasal congestion, cough, nausea , vomiting Treatments Prior to Arrival: Ibuprofen - Related Data Previous Rx's Medication Instructions Recorded Last Taken Type ALBUTEROL Inhaler [ProAir HFA 1 puff IH Q4-6H #1 inha 08/19/13 Unknown Rx Inhaler] methylPREDNISolone [Medrol Dose 4 mg PO DAILY #1 pack 09/30/16 Unknown Rx Keyshawn] traMADol [Ultram 50 MG tab] 50 mg PO Q4HR PRN #10 tablet 09/30/16 Unknown Rx Amoxicillin/K Clav Tab [Augmentin 1 tab PO Q12HR #14 tab 12/15/16 Unknown Rx 875 mg] Acetaminophen/Codeine [Tylenol 1 tab PO Q6H PRN #20 tab 02/07/17 Unknown Rx /Codeine # 3 tab] Ibuprofen [Motrin 600 MG tab] 600 mg PO Q8H PRN #21 tablet 02/07/17 Unknown Rx Ibuprofen [Motrin 800 MG tab] 800 mg PO Q8HR PRN #30 tablet 05/31/17 Unknown Rx Naproxen 500 mg PO BID PRN #30 tablet 08/23/17 Unknown Rx Clindamycin [Clindamycin CAP] 300 mg PO Q8H #30 cap 12/11/17 Unknown Rx Ibuprofen [Motrin 800 MG tab] 800 mg PO Q8H #40 tablet 12/11/17 Unknown Rx Allergies Allergy/AdvReac Type Severity Reaction Status Date / Time Penicillins Allergy Hives Verified 12/17/16 14:30 ED Review of Systems ROS: Stated complaint: HEADACHE CP Other details as noted in HPI Constitutional: chills ENT: ear pain, throat pain Respiratory: cough Cardiovascular: denies: chest pain, palpitations Endocrine: no symptoms reported Gastrointestinal: nausea, vomiting Genitourinary: denies: urgency, dysuria, discharge Musculoskeletal: myalgia. denies: back pain, joint swelling, arthralgia Skin: denies: rash, lesions Neurological: headache Psychiatric: denies: anxiety, depression Hematological/Lymphatic: denies: easy bleeding, easy bruising ED Past Medical Hx - Past Medical History Hx Hypertension: Yes Hx Psychiatric Treatment: Yes (depression) Hx Asthma: Yes Additional medical history: Earache - Surgical History Additional Surgical History: C section x2 - Social History Smoking Status: Never Smoker Substance Use Type: None - Medications Home Medications: Home Medications Medication Instructions Recorded Confirmed Last Taken Type ALBUTEROL Inhaler [ProAir HFA 1 puff IH Q4-6H #1 inha 08/19/13 09/30/16 Unknown Rx Inhaler] methylPREDNISolone [Medrol Dose 4 mg PO DAILY #1 pack 09/30/16 Unknown Rx Keyshawn] traMADol [Ultram 50 MG tab] 50 mg PO Q4HR PRN #10 tablet 09/30/16 Unknown Rx Amoxicillin/K Clav Tab [Augmentin 1 tab PO Q12HR #14 tab 12/15/16 Unknown Rx 875 mg] Acetaminophen/Codeine [Tylenol 1 tab PO Q6H PRN #20 tab 02/07/17 Unknown Rx /Codeine # 3 tab] Ibuprofen [Motrin 600 MG tab] 600 mg PO Q8H PRN #21 tablet 02/07/17 Unknown Rx Ibuprofen [Motrin 800 MG tab] 800 mg PO Q8HR PRN #30 tablet 05/31/17 Unknown Rx Naproxen 500 mg PO BID PRN #30 tablet 08/23/17 Unknown Rx Clindamycin [Clindamycin CAP] 300 mg PO Q8H #30 cap 12/11/17 Unknown Rx Ibuprofen [Motrin 800 MG tab] 800 mg PO Q8H #40 tablet 12/11/17 Unknown Rx ED Physical Exam - General Limitations: No Limitations General appearance: alert, in no apparent distress - Head Head exam: Present: atraumatic, normocephalic - Eye Eye exam: Present: normal appearance - ENT ENT exam: Present: mucous membranes moist - Expanded ENT Exam Expanded Mouth exam: Present: muffled voice Throat exam: Positive: tonsillar erythema - Neck Neck exam: Present: normal inspection - Respiratory Respiratory exam: Present: normal lung sounds bilaterally. Absent: respiratory distress - Cardiovascular Cardiovascular Exam: Present: regular rate, normal rhythm. Absent: systolic murmur, diastolic murmur, rubs, gallop - GI/Abdominal GI/Abdominal exam: Present: soft, normal bowel sounds - Extremities Exam Extremities exam: Present: normal inspection - Back Exam Back exam: Present: normal inspection - Neurological Exam Neurological exam: Present: alert, oriented X3 - Psychiatric Psychiatric exam: Present: normal affect, normal mood - Skin Skin exam: Present: warm, dry, intact, normal color. Absent: rash ED Course Vital Signs 12/11/17 12/11/17 19:05 22:51 Temperature 98.6 F Pulse Rate 72 Respiratory 16 14 Rate Blood Pressure 144/93 O2 Sat by Pulse 98 Oximetry ED Medical Decision Making - Medical Decision Making Patient has been evaluated by this provider fast track. Patient was given pain medication and nausea medication. Rapid strep culture obtained and sent. We will treat patient for upper respiratory infection. I will place patient on Bactrim double strength. Critical care attestation.: If time is entered above; I have spent that time in minutes in the direct care of this critically ill patient, excluding procedure time. ED Disposition Clinical Impression: Upper respiratory infection Qualifiers: URI type: unspecified URI Qualified Code(s): J06.9 - Acute upper respiratory infection, unspecified Disposition: DC-01 TO HOME OR SELFCARE Is pt being admited?: No Does the pt Need Aspirin: No Condition: Stable Instructions: Upper Respiratory Infection (ED) Additional Instructions: Take antibiotics and pain medication as prescribed. Follow-up with the primary care provider. Prescriptions: Clindamycin [Clindamycin CAP] 300 mg PO Q8H #30 cap Ibuprofen [Motrin 800 MG tab] 800 mg PO Q8H #40 tablet Referrals: CAR FITZPATRICK MD [Primary Care Provider] - 3-5 Days [facility] [Provider Group] - 3-5 Days [facility] [Provider Group] - 3-5 Days Forms: Accompanied Note, Work/School Release Form(ED)
[2017-12-11 23:55] VITALS: BP 140/89
== END 2017-12-12 | disposition home or self-care (01) ==
LOC: ED 19:02
DX: J06.9 Acute upper respiratory infection, unspecified (principal); R11.2 Nausea with vomiting, unspecified; I10 Essential (primary) hypertension; J45.909 Unspecified asthma, uncomplicated; F32.9 Major depressive disorder, single episode, unspecified; Z88.0 Allergy status to penicillin
CPT/HCPCS: 87116; 87430; 99283; Q0162